=== PATIENT | male | born 2000 | race Caucasian/White ===

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

== ENCOUNTER 2020-07-15 21:45 | Emergency (ER) | payer OTHER ==
[2020-07-15 21:58] VITALS: BP 133/81
[2020-07-15] MEDS ORDERED: IBUPROFEN 800 MG TABLET PO STA (22:14)
[2020-07-15] MEDS ORDERED: ACETAMINOPHEN 325 MG TABLET PO STA (22:14)
--- NOTE | 2020-07-15 22:25 | ED Physician Documentation ---
History of Present Illness - Stated complaint Stated Complaint: SOA - Chief complaint Chief Complaint: Heent - History obtained from History obtained from: Patient - Additonal information Additional information: Patient comes emergency department complaining of an area of pain down in his throat that started this evening around 1800. He states that he feels the pain and a discomfort whenever he breathes in or out, or when he swallows. Patient has 2 aphthous ulcers in his mouth already. He denies any fevers or chills. No nasal congestion. No cough or shortness of breath. The patient states that he had a sore throat for a few days last week and was tested for strep and found to be negative. He states that he has not had any symptoms since until this evening, other than the aphthous ulcers. No other complaints at this time. No sick contacts of any kind anywhere that the patient knows of. Patient states he is otherwise healthy. Review of Systems Ten Systems: 10 systems reviewed and negative Constitutional: reports: Reviewed and negative. denies: Fever, Chills, Myalgias Eyes: reports: Reviewed and negative Ears: reports: Reviewed and negative Nose: reports: Reviewed and negative Throat: reports: Oral lesions / sores, Sore throat Cardiac: reports: Reviewed and negative Respiratory: reports: Reviewed and negative. denies: Dyspnea, Cough GI: reports: Reviewed and negative : reports: Reviewed and negative Skin: reports: Reviewed and negative Musculoskeletal: reports: Reviewed and negative Neurologic: reports: Reviewed and negative Psychiatric: reports: Reviewed and negative Endocrine: reports: Reviewed and negative Immunocompromised: reports: Reviewed and negative PD PAST MEDICAL HISTORY - Past Medical History Cardiovascular: None Respiratory: None Neuro: None Endocrine/Autoimmune: None GI: None : None HEENT: None Psych: None Musculoskeletal: None Derm: None - Past Surgical History Past Surgical History: No - Present Medications Home Medications: Ambulatory Orders Medication Instructions Recorded Confirmed Erythromycin Base [Erythromycin 1 appful OP 5XD 7 Days #1 oint...g. 02/09/19 Ophthalmic Ointment] Loperamide [Imodium] 2 mg PO QID PRN #10 capsule 05/25/19 Meclizine HCl 25 mg PO Q6H PRN #15 tab.chew 05/25/19 Ondansetron Odt [Zofran] 4 mg TL Q6H PRN #10 tablet 05/25/19 - Allergies Allergies/Adverse Reactions: Allergies Allergy/AdvReac Type Severity Reaction Status Date / Time No Known Drug Allergies Allergy Verified 07/15/20 21:58 - Social History Does the pt smoke?: No Smoking Status: Never smoker Does the pt drink ETOH?: No Does the pt have substance abuse?: No - Immunizations Immunizations are current?: Yes - POLST Patient has POLST: No PD ED PE NORMAL - Vitals Vital signs reviewed: Yes - General General: Alert and oriented X 3, No acute distress - HEENT HEENT: Atraumatic, PERRL, EOMI, Moist mucous membranes, Pharynx benign, Other (2 aphthous ulcers right buccal mucosa.) - Neck Neck: Supple, no meningeal sign, No adenopathy - Cardiac Cardiac: RRR, No murmur, Strong equal pulses - Respiratory Respiratory: No respiratory distress, Clear bilaterally - Derm Derm: Normal color, Warm and dry, No rash - Extremities Extremities: No deformity - Neuro Neuro: Alert and oriented X 3, Other (Grossly normal) - Psych Psych: Normal mood, Normal affect Results - Vitals Vitals: Vital Signs - 24 hr 07/15/20 21:45 Temperature 37.9 C H Heart Rate 107 H Respiratory 18 Rate Blood Pressure 133/81 H O2 Saturation 98 Oxygen O2 Source Room air PD MEDICAL DECISION MAKING - ED course Complexity details: considered differential, d/w patient ED course: I discussed with the patient that there is no evidence of strep throat at this time, and patient was just tested last week. I feel most likely, the patient has an aphthous ulcer down in his inferior pharynx out of view on gross examination of the oropharynx. The patient does not have any stridor, nor does he have any significant lymphadenopathy. He does not have any visible swelling of the oropharynx. There is no evidence of airway edema on his x-ray. I have discussed symptomatic treatment with the patient. The patient has requested ibuprofen and Tylenol here, as well as a work note. These have been given. Patient stable for discharge home. Departure - Departure Disposition: 01 Home, Self Care Clinical Impression: Acute viral syndrome, Aphthous ulcer Condition: Stable Instructions: ED [place], ED Viral Syndrome
--- NOTE | 2020-07-16 08:34 | XRAY Report ---
PROCEDURE: Chest 1 View X-Ray INDICATIONS: chest pain TECHNIQUE: One view of the chest was acquired. COMPARISON: None. FINDINGS: Surgical changes and devices: None. Lungs and pleura: No pleural effusions or pneumothorax. Lungs are clear. Mediastinum: Mediastinal contours appear normal. Heart size is normal. Bones and chest wall: No suspicious bony lesions. Overlying soft tissues appear unremarkable. IMPRESSION: No acute disease Reviewed by: Juve Benedict MD on 07/16/2020 8:33 AM PDT Approved by: Juve Benedict MD on 07/16/2020 8:33 AM PDT Station ID: [id number]
== END 2020-07-15 22:36 | disposition home or self-care (01) ==
LOC: ED 21:45
DX: K12.0 Recurrent oral aphthae (principal); B34.9 Viral infection, unspecified
CPT/HCPCS: 71045; 99283; 99284; A9270

== ENCOUNTER 2022-01-11 11:57 | Emergency (ER) | payer OTHER ==
[2022-01-11 12:06] VITALS: BP 112/72
[2022-01-11 12:32] LABS: RAPID STREP SCREEN Negative (Negative)
[2022-01-11] MEDS ORDERED: CHERRY SYRUP 10 ML UDC PO ONE (13:19)
[2022-01-11] MEDS ORDERED: DEXAMETHASONE 10 MG/ML VIAL PO STA (13:19)
--- NOTE | 2022-01-11 13:21 | ED Physician Documentation ---
PD HPI PED ILLNESS - Stated complaint Stated Complaint: SORE THROAT,COUGH,SNEEZING - Chief complaint Chief Complaint: Heent - History obtained from History obtained from: Patient - Additional information Additional information: Previously healthy 21-year-old gentleman, active duty in the [employer]. He has been sick for about 3 to 4 days with sore throat, had some body aches and now has cough with phlegm in his throat. He is not short of breath. No fevers. He was exposed to a girl that was sick but he does not know with what. Review of Systems Constitutional: reports: Myalgias, Fatigue. denies: Fever, Chills Ears: denies: Ear pain Nose: reports: Rhinorrhea / runny nose Throat: reports: Sore throat Respiratory: reports: Cough. denies: Dyspnea PD PAST MEDICAL HISTORY - Past Medical History Past Medical History: No Cardiovascular: None Respiratory: None Neuro: None Endocrine/Autoimmune: None GI: None : None HEENT: None Psych: None Musculoskeletal: None Derm: None - Past Surgical History Past Surgical History: No - Present Medications Home Medications: Ambulatory Orders Medication Instructions Recorded Confirmed Guaifenesin/Pseudoephedrne HCl 1 each PO BID PRN #20 ea 01/11/22 [Mucinex D ER 600-60 mg Tablet] - Allergies Allergies/Adverse Reactions: Allergies Allergy/AdvReac Type Severity Reaction Status Date / Time No Known Drug Allergies Allergy Verified 01/11/22 12:02 - Social History Does the pt smoke?: No Smoking Status: Never smoker Does the pt drink ETOH?: No Does the pt have substance abuse?: No - Immunizations Immunizations are current?: Yes - POLST Patient has POLST: No PD ED PE NORMAL - Vitals Vital signs reviewed: Yes - General General: Alert and oriented X 3, No acute distress - HEENT HEENT: Ears normal, Moist mucous membranes, Pharynx benign - Neck Neck: Supple, no meningeal sign, No bony TTP - Cardiac Cardiac: RRR, No murmur - Respiratory Respiratory: No respiratory distress, Clear bilaterally - Abdomen Abdomen: Non tender - Derm Derm: Normal color, Warm and dry - Neuro Neuro: Alert and oriented X 3, Normal speech - Psych Psych: Normal mood, Normal affect Results - Vitals Vitals: Vital Signs - 24 hr 01/11/22 12:03 Temperature 36.7 C Heart Rate 80 Respiratory 16 Rate Blood Pressure 112/72 O2 Saturation 98 Oxygen O2 Source Room air - Labs Labs: Laboratory Tests 01/11/22 12:10 Group A Strep Rapid Negative PD MEDICAL DECISION MAKING - ED course ED course: 21-year-old gentleman with a viral syndrome. Strep test negative, culture pending. He appears well and there is no evidence of bacterial illness. He will be treated symptomatically and Covid test is sent as well. Departure - Departure Disposition: 01 Home, Self Care Clinical Impression: Viral upper respiratory infection Condition: Good Record reviewed to determine appropriate education?: Yes Instructions: ED Viral Syndrome Prescriptions: Guaifenesin/Pseudoephedrne HCl [Mucinex D ER 600-60 mg Tablet] 1 each PO BID PRN #20 ea PRN Reason: congestion Comments: Your symptoms are consistent with a viral infection, this should go away on its own. We did give you the long-acting steroid here, dexamethasone for the inflammation and I wrote a prescription for a prescription decongestant. You can continue to take ibuprofen. Return for new or worsening symptoms. We are culturing your throat and on the off chance bacterial infection is identified in your throat we will call you in a couple of days. You have a Covid test pending. You need to self quarantine until the result is done and negative. Do not leave your house. Do not get near anybody. The results should be done in 48 to 72 hours. We will call with a positive result, the fastest way to get a negative result for confirmation though is to go to the hospital website at [email or web address], click on the my [employer] tab and sign up for the patient portal. If any friends or family get sick and would like to have a Covid test done, but do not have signs or symptoms that would necessitate being hospitalized, there are multiple local options for Covid testing. [facility] keeps an updated list of testing and vaccination options at: [email or web address].
== END 2022-01-11 13:37 | disposition home or self-care (01) ==
LOC: ED 11:57
DX: J06.9 Acute upper respiratory infection, unspecified (principal); Z20.822 Contact with and (suspected) exposure to COVID-19
CPT/HCPCS: 87070; 87430; 87635; 99282; 99283; A9270

== ENCOUNTER 2022-02-17 14:01 | Emergency (ER) | payer OTHER ==
[2022-02-17 14:25] VITALS: BP 112/65
--- NOTE | 2022-02-17 15:30 | ED Physician Documentation ---
PD HPI URI - Stated complaint Stated Complaint: COUGH,NO TASTE - Chief complaint Chief Complaint: Heent - History obtained from History obtained from: Patient - History of Present Illness Timing - onset: How many months ago (1) Timing duration: Months (a month of initially sore throat cough and congestion. He has persisted with sinus drainage and pressure. Now with couple days of fever, sore throat, purulent nasal drainage.) Timing details: Gradual onset, Still present Associated symptoms: Rhinorrhea, Sinus pain, Sore throat (with postnasal drainage). No: Fever, Dry cough Contributing factors: No: Sick contact Similar symptoms before: Has not had sx before Recently seen: Not recently seen (had negative COVID tests earlier in the month.) Review of Systems Constitutional: reports: Myalgias. denies: Fever, Chills Nose: reports: Rhinorrhea / runny nose, Congestion, Sinus pressure / pain Throat: reports: Sore throat Respiratory: denies: Cough PD PAST MEDICAL HISTORY - Past Medical History Cardiovascular: None Respiratory: None Neuro: None Endocrine/Autoimmune: None GI: None : None HEENT: None Psych: None Musculoskeletal: None Derm: None - Past Surgical History Past Surgical History: No - Present Medications Home Medications: Ambulatory Orders Medication Instructions Recorded Confirmed Amoxicillin 500 mg PO TID #21 cap 02/17/22 Cetirizine [ZyrTEC] 10 mg PO BID #15 tablet 02/17/22 - Allergies Allergies/Adverse Reactions: Allergies Allergy/AdvReac Type Severity Reaction Status Date / Time No Known Drug Allergies Allergy Verified 01/11/22 12:02 - Social History Does the pt smoke?: No Smoking Status: Never smoker Does the pt drink ETOH?: No Does the pt have substance abuse?: No - Immunizations Immunizations are current?: Yes - POLST Patient has POLST: No PD ED PE NORMAL - Vitals Vital signs reviewed: Yes - General General: Alert and oriented X 3, No acute distress, Well developed/nourished - HEENT HEENT: Ears normal, Pharynx benign - Neck Neck: Supple, no meningeal sign, No adenopathy - Cardiac Cardiac: RRR, No murmur - Respiratory Respiratory: Clear bilaterally Results - Vitals Vitals: Oxygen O2 Source Room air - Labs Labs: Laboratory Tests 02/17/22 14:20 Coronavirus (PCR) NEGATIVE PD MEDICAL DECISION MAKING - ED course Complexity details: considered differential (ear, throat and sinus pain with fairly normal exam. Presume sinusitis given prior URI and now focal sinus symptoms. Consider resurgence of prior COVID. ), d/w patient Departure - Departure Disposition: 01 Home, Self Care Clinical Impression: Sinusitis, acute Qualifiers: Sinusitis location: unspecified location Recurrence: non-recurrent Qualified Code(s): J01.90 - Acute sinusitis, unspecified Condition: Stable Record reviewed to determine appropriate education?: Yes Instructions: ED Sinusitis Abx Tx Follow-Up: PAUL YEPEZ MD [Primary Care Provider] - Prescriptions: Amoxicillin 500 mg PO TID #21 cap Cetirizine [ZyrTEC] 10 mg PO BID #15 tablet Comments: LikeWe did do a COVID test and that should result in a day or so. At this point your symptoms actually sound more like a sinus infection that developed subsequent to your prior viral illness. I would treated with antihistamines for congestion and antibiotic for likely bacterial component. I sent [facility] prescriptions to [facility] pharmacy. Off work today and tomorrow pending the COVID result. Discharge Date/Time: 02/17/22 16:13
[2022-02-17] MEDS ORDERED: CETIRIZINE 10 MG TABLET PO STA (15:55)
[2022-02-17] MEDS ORDERED: AMOXICILLIN 250 MG CAPSULE PO STA (15:55)
== END 2022-02-17 16:13 | disposition home or self-care (01) ==
LOC: ED 14:01
DX: J01.90 Acute sinusitis, unspecified (principal); Z20.822 Contact with and (suspected) exposure to COVID-19
CPT/HCPCS: 87635; 99283; A9270

== ENCOUNTER 2023-04-09 09:52 | Emergency (ER) | payer OTHER ==
--- NOTE | 2023-04-09 11:26 | ED Physician Documentation ---
History of Present Illness - Stated complaint Stated Complaint: VOMITING,DIARRHEA,SORE THROAT - Chief complaint Chief Complaint: Abd Pain - History obtained from History obtained from: Patient - Additonal information Additional information: The patient comes to the emergency department chief complaint of vomiting and diarrhea that started yesterday. He states he was at with [place] over the weekend and did some swimming but thinks the water mainly got in his nose and does not think he swallowed any. He denies any fevers or chills. He states he has had some persistent nausea but has only vomited once last night and once this morning. He has not had any bowel movements today. No other complaints at this time. PD PAST MEDICAL HISTORY - Past Medical History Cardiovascular: None Respiratory: None Neuro: None Endocrine/Autoimmune: None GI: None : None HEENT: None Psych: None Musculoskeletal: None Derm: None - Past Surgical History Past Surgical History: No - Present Medications Home Medications: Ambulatory Orders Medication Instructions Recorded Confirmed Amoxicillin 500 mg PO TID #21 cap 02/17/22 Cetirizine [ZyrTEC] 10 mg PO BID #15 tablet 02/17/22 Ondansetron Odt [Zofran] 4 mg TL Q6H PRN #10 tablet 04/09/23 - Allergies Allergies/Adverse Reactions: Allergies Allergy/AdvReac Type Severity Reaction Status Date / Time No Known Drug Allergies Allergy Verified 04/09/23 10:02 - Social History Does the pt smoke?: No Smoking Status: Never smoker Does the pt drink ETOH?: No Does the pt have substance abuse?: No - Immunizations Immunizations are current?: Yes - POLST Patient has POLST: No PD ED PE NORMAL - Vitals Vital signs reviewed: Yes - General General: Alert and oriented X 3, No acute distress, Well developed/nourished - HEENT HEENT: Atraumatic, PERRL, EOMI, Moist mucous membranes - Neck Neck: Supple, no meningeal sign - Cardiac Cardiac: RRR, No murmur, Strong equal pulses - Respiratory Respiratory: No respiratory distress, Clear bilaterally - Abdomen Abdomen: Soft, Non tender, Non distended - Derm Derm: Normal color, Warm and dry, No rash - Extremities Extremities: No deformity, No edema - Neuro Neuro: Alert and oriented X 3 - Psych Psych: Normal mood, Normal affect Results - Vitals Vitals: Vital Signs - 24 hr 04/09/23 09:59 Temperature 36.4 C L Heart Rate 66 Respiratory 14 Rate Blood Pressure 116/76 O2 Saturation 98 Oxygen O2 Source Room air PD Medical Decision Making - ED course Complexity details: considered differential, d/w patient ED course: The patient was given a dose of Zofran here in the emergency department. I discussed with him that his symptoms are most likely viral and will blow over on their own. Patient already has not even had a bowel movement today and I suspect that his illness will be short-lived. We have discussed symptomatic management at home, as well as the usual indications for return. Departure - Departure Disposition: Home, Self Care Clinical Impression: Gastroenteritis Condition: Stable Instructions: ED Gastroenteritis Viral Prescriptions: Ondansetron Odt [Zofran] 4 mg TL Q6H PRN #10 tablet PRN Reason: Nausea / Vomiting Comments: Your symptoms are consistent with the many viral illnesses that are going around right now and causing the same kind of vomiting and diarrhea. In general, these illnesses are caused by viruses and are self-limited, meaning they will go away on their own, given time. Usually, the symptoms last for anywhere from a few days to a week before resolving. You have been given a dose of nausea medicine here in the emergency department, and a prescription for the same has been electronically transmitted to the [facility] pharmacy in [place]. You should stick with just clear liquids for the next 24 hours after vomiting, and should not try to eat any solid food. Once you been able to tolerate clear liquids for 24 hours, you may progress to solid foods but should start with simple starches like saltine crackers, oyster crackers, or Ramen noodles. If you tolerate this okay, you may progress your diet from there.
[2023-04-09] MEDS: ONDANSETRON ODT 4 MG TABLET TL STA (11:29)
[2023-04-09 11:44] VITALS: BP 110/65
== END 2023-04-09 11:40 | disposition home or self-care (01) ==
LOC: ED 09:52
DX: K52.9 Noninfective gastroenteritis and colitis, unspecified (principal)
CPT/HCPCS: 99282; 99283; Q0162